=== PATIENT | female | born 1975 | race Caucasian/White ===

== ENCOUNTER 2016-06-21 11:13 | Emergency (ER) | payer OTHER ==
[~2016-06-21] VITALS: Ht 170.2 cm; Wt 102.2 kg
[~2016-06-21 11:13] MED LIST: NOHOMEMEDS
[2016-06-21 12:09] VITALS: BP 115/70
[2016-06-21] MEDS ORDERED: LIDODERM 5% P1 PATCH TD (12:40)
[2016-06-21] MEDS ORDERED: MOBIC7.5 MG PO (12:40)
[2016-06-21] MEDS ORDERED: FLEXERIL10 MG PO (12:40)
== END 2016-06-21 12:57 | disposition home or self-care (01) ==
LOC: EME 11:13
DX: S16.1XXA Strain of muscle, fascia and tendon at neck level, initial encounter (principal); X58.XXXA Exposure to other specified factors, initial encounter; M62.830 Muscle spasm of back
CPT/HCPCS: 73030; 99281; 99284; J3010